=== PATIENT | male | born 1975 | race African-American/Black ===

== ENCOUNTER 2023-08-19 15:43 | Emergency (ER) | payer MEDICARE, OTHER ==
[2023-08-19] MEDS ORDERED: Ketorolac Tromethamine 30 MG (1 mL) VIAL ONE (17:26)
[2023-08-19] MEDS ORDERED: Acetaminophen 500 MG TAB ONE (17:26)
[2023-08-19 17:36] LABS: Bacteria/HPF None Seen HPF (None Seen); Bilirubin Negative (Negative); Blood, Urine Negative (Negative); CAUTI Indications for Culture Pelvic or flank pain; Clarity Clear (Clear); Glucose, Urine (Dipstick) Normal (Negative); Ketone, Urine Negative (Negative); Leukocyte Negative Leu/uL (Negative); Nitrite Negative (Negative); Protein, Urine (Dipstick) Negative (Neg-Trace); RBC/HPF 0-3 HPF (0-3); Specific Gravity, Urine 1.018 (1.002-1.036); Squamous Epithelial None Seen HPF (0-3); Urobilinogen Normal mg/dL (Less than 2); WBC/HPF 0-3 HPF (0-3); pH, Urine 6.5 (5.0-9.0)
[2023-08-19 17:44] LABS: Urine Culture Reflex No No
== END 2023-08-19 19:05 | disposition home or self-care (01) ==
LOC: ERS 15:43
DX: M54.50 Low back pain, unspecified (principal)
CPT/HCPCS: 72100; 81001; J1885; 96372

== ENCOUNTER 2023-12-12 06:09 | Emergency (ER) | payer MEDICARE, OTHER ==
[2023-12-12] MEDS ORDERED: Acetaminophen 500 MG TAB ONE (06:42)
== END 2023-12-12 08:29 | disposition home or self-care (01) ==
LOC: ERS 06:09
DX: J31.0 Chronic rhinitis (principal); I10 Essential (primary) hypertension
CPT/HCPCS: 70450; 93005

== ENCOUNTER 2025-01-31 08:28 | Emergency (ER) | payer MEDICARE, OTHER, SELFPAY | END 2025-01-31 09:18 | disposition home or self-care (01) | LOC: ERS 08:28 | DX: L30.9 Dermatitis, unspecified (principal); I10 Essential (primary) hypertension | CPT/HCPCS: 99282 ==